=== PATIENT | male | born 1950 | race Caucasian/White ===

== ENCOUNTER → 2019-01-20 08:45 | Outpatient (CLI) | payer MEDICARE | END | disposition home or self-care (01) | LOC: D.CT 08:45 | PROVIDERS: ATTEND Legal Medicine | DX: C71.9 Malignant neoplasm of brain, unspecified (principal) ==

== ENCOUNTER 2019-07-24 09:07 | Inpatient (IN) | payer MEDICARE ==
[~2019-07-24] VITALS: Ht 182.9 cm; Wt 117.7 kg
[2019-07-24] MEDS ORDERED: TYLENOL ARTHRI650 MG PO (09:17)
[2019-07-24] MEDS ORDERED: ATIVAN0.5 MG PO (09:17)
[2019-07-24] MEDS ORDERED: DECADRON4 MG PO (09:18)
[2019-07-24] MEDS ORDERED: BENZTROPINE MESY1 MG PO (09:18)
[2019-07-24] MEDS ORDERED: DONEPEZIL HCL10 MG PO (09:18)
[2019-07-24] MEDS ORDERED: BUSPAR 15 MG TA15 MG PO (09:18)
[2019-07-24] MEDS ORDERED: EFFEXOR XR150 MG PO (09:19)
[2019-07-24] MEDS ORDERED: KEPPRA500 MG PO (09:19)
[2019-07-24] MEDS ORDERED: FLOMAX0.4 MG PO (09:19)
[2019-07-24] MEDS ORDERED: KLOR-CON M2020 MEQ PO (09:19)
[2019-07-24] MEDS ORDERED: MOBIC7.5 MG PO (09:20)
[2019-07-24] MEDS ORDERED: MELATONIN 3 MG1 TAB PO (09:20)
[2019-07-24] MEDS ORDERED: FUROSEMIDE20 MG PO (09:20)
[2019-07-24] MEDS ORDERED: PROMOD LIQUID P30 M1 PO (09:21)
[2019-07-24] MEDS ORDERED: OMEPRAZOLE40 MG PO (09:21)
[2019-07-24] MEDS ORDERED: VITAMIN B-1100 M1 PO (09:21)
[2019-07-24] MEDS ORDERED: VITAMIN D5000 UNI1 PO (09:22)
[2019-07-24] MEDS ORDERED: ZYPREXA10 MG PO (09:22)
[2019-07-24] MEDS ORDERED: ULTRAM50 MG PO (09:22)
--- NOTE | 2019-07-24 09:25 | NUR ---
CLEANED AND REPOSITIONED D/T INCONT OF STOOL.
[2019-07-24 09:37] LABS: BASOPHILS 0.1 % (0-2); EOSINOPHILS 0 % (0-7); HEMATOCRIT 38.6 % (42.0-54.0); HEMOGLOBIN 12.7 g/dL (13.5-17.5); IMMATURE GRANULOCYTES 0.1 % (0-5); LYMPHOCYTES 4.8 % (15-50); MCH 31.4 pg (26.0-34.0); MCHC 32.9 g/dL (31.0-37.0); MCV 95.5 fL (80.0-100.0); MEAN PLATELET VOLUME 10.6 fL (7.4-10.4); MONOCYTES 4.2 % (2-11); NEUTROPHILS 90.8 % (40-80); PLATELET COUNT 220 10x3/uL (130-400); RBC 4.04 10x6/uL (4.20-6.10); RDW 14.9 % (11.5-14.5); WBC 6.7 10x3/uL (4.8-10.8)
--- NOTE | 2019-07-24 09:40 | NUR ---
TO CT/XR.
--- NOTE | 2019-07-24 09:56 | NUR ---
RETURN FROM CT/XR.
[2019-07-24 10:00] LABS: UDS - AMPHET NEGATIVE QUAL (NEGATIVE); UDS - BARB NEGATIVE QUAL (NEGATIVE); UDS - BENZO NEGATIVE QUAL (NEGATIVE); UDS - COCAINE NEGATIVE QUAL (NEGATIVE); UDS - OPIATE NEGATIVE QUAL (NEGATIVE); UDS - PCP NEGATIVE QUAL (NEGATIVE); UDS - THC NEGATIVE QUAL (NEGATIVE)
[2019-07-24 10:00] LABS: INR 1.19 (0.85-1.17); PROTIME 15.1 SECONDS (11.6-15.0)
[2019-07-24 10:05] LABS: BILIRUBIN NEGATIVE (NEGATIVE); GLUCOSE NEGATIVE (NEGATIVE); KETONE NEGATIVE (NEGATIVE); NITRITE NEGATIVE (NEGATIVE); SPECIFIC GRAVITY 1.015 (1.005-1.020); UROBILINOGEN NORMAL (NORMAL)
[2019-07-24 10:07] VITALS: BP 97/37
[2019-07-24 10:55] LABS: CREATININE - SERUM 1.7 mg/dL (0.6-1.3); GLUCOSE 95 mg/dL (74-106); MAGNESIUM - SERUM 1.7 mg/dL (1.8-2.4); UREA NITROGEN 31 mg/dL (7-18); eGFR NON AFRICAN AMERICAN 43 mL/min (90-120)
[2019-07-24 10:56] LABS: ALBUMIN 2.2 g/dL (3.4-5.0); ALKALINE PHOSPHATASE 68 U/L (30-120); ALT (SGPT) 58 U/L (10-68); BILIRUBIN - TOTAL 1.06 mg/dL (0.2-1.3); CALC OSMOLALITY 291 mosm/kg (275-300); CALCIUM 7.6 mg/dL (8.5-10.1); CARBON DIOXIDE 23.4 mmol/L (21.0-32.0); CHLORIDE - SERUM 108 mmol/L (98-107); CREATINE KINASE 33 UL (21-232); POTASSIUM - SERUM 4.3 mmol/L (3.5-5.1); PROTEIN - SERUM 4.3 g/dL (6.4-8.2); SODIUM 143 mmol/L (136-145)
[2019-07-24 10:57] LABS: TROPONIN-I < 0.017 ng/mL (0.000-0.060)
[2019-07-24 11:00] VITALS: BP 85/66
[2019-07-24 11:00] LABS: CKMB 0.4 U/L (0.0-3.6); THYROID STIMULATING HORMONE 1.07 uIU/mL (0.36-3.74)
[2019-07-24 12:00] VITALS: BP 100/77; BP 101/64
[2019-07-24 12:45] VITALS: BP 87/66
--- NOTE | 2019-07-24 13:17 | NUR ---
PT TO ROOM FROM ER ON CART, ASSIST TO BED. PAIN COMPLAINTS TO RIGHT KNEE AND LEG AREA. MULTIPLE DRESSINGS ON UPPER AND LOWER EXTREMITIES FROM SKIN TEARS SECONDARY TO FALLS. BRUISING NOTED ALSO, ESPECIALLY TO LEFT HIP AREA.
--- NOTE | 2019-07-24 13:52 | NUR ---
ADMITTED TODAY FROM [place]. PT HAS NUMEROUS SKIN TEARS AND ABRASIONS LOCATED ON BILATERAL ARMS AND LEGS. HIS RIGHT LOWER LEG IS EDEMATOUS, DISCOLORED RED AND WARM TO THE TOUCH. HE CRIES OUT WHEN IT'S TOUCHED. THERE IS A LARGE PURPLE BRUISE ON HIS LEFT BUTTOCK AND HIP. PT HAS A HX OF FALLS.
[2019-07-24 17:48] VITALS: BP 93/45; BMI 27.2
--- NOTE | 2019-07-24 19:38 | NUR ---
PT LYING IN BED AWAKE AND ALERT. BED BATH DONE AND LINEN CHNAGED. PT REPOSITIONED FOR COMFORT. SIDERAILS UP x3. PT TOLERATED BATH WELL. BED ALARM ON AND ACTIVE. CALL LIGHT WITH IN REACH. WILL CONTINUE TO MONITOR
--- NOTE | 2019-07-24 19:39 | NUR ---
PT CHANGED AND CLEANED UP. PM SHIFT NURSE AT BEDSIDE ASSISTING. LARGE BLISTER TO BACK OF CALF POPPED DURING TRANSFER.
[2019-07-24 20:40] VITALS: BP 102/69
--- NOTE | 2019-07-24 23:39 | NUR ---
HR RATE IN THE 200'S PER DUPLICATING MACHINE MECHANIC. CARDIZEM BOLUS AND CARDIZEM DRIP ADMINISTERED. CRUZ LAGUNA AT BEDSIDE. PT HR IS 103 UNCONTROLLED A FIB PER DUPLICATING MACHINE MECHANIC. XRAY IS AT BEDSIDE. PT IS TOLERATING WELL. CALL LIGHT AND OTHER PERSONAL ITEMS WITH IN REACH. BED IS INLOWEST POSITION. WILL CONTINUE TO MONITOR
[2019-07-25] VITALS: BP 98/61
[2019-07-25 04:00] VITALS: BP 90/67
[2019-07-25 05:17] LABS: BASOPHILS 0 % (0-2); EOSINOPHILS 0 % (0-7); HEMATOCRIT 39.5 % (42.0-54.0); HEMOGLOBIN 12.6 g/dL (13.5-17.5); IMMATURE GRANULOCYTES 1.4 % (0-5); LYMPHOCYTES 3.7 % (15-50); MCH 30.3 pg (26.0-34.0); MCHC 31.9 g/dL (31.0-37.0); MEAN PLATELET VOLUME 10.7 fL (7.4-10.4); MONOCYTES 2.6 % (2-11); NEUTROPHILS 92.3 % (40-80); PLATELET COUNT 185 10x3/uL (130-400); RBC 4.16 10x6/uL (4.20-6.10); RDW 14.8 % (11.5-14.5); WBC 9.4 10x3/uL (4.8-10.8)
[2019-07-25 05:42] LABS: ANION GAP 17.4 mmol/L (8-16); CALCIUM 7.9 mg/dL (8.5-10.1); CARBON DIOXIDE 18.5 mmol/L (21.0-32.0); CREATININE - SERUM 1.3 mg/dL (0.6-1.3); MAGNESIUM - SERUM 1.8 mg/dL (1.8-2.4); PHOSPHOROUS 3.6 mg/dL (2.5-4.9); POTASSIUM - SERUM 3.9 mmol/L (3.5-5.1)
[2019-07-25 09:32] VITALS: BP 131/51
[2019-07-25 12:00] VITALS: BP 95/55
[2019-07-25 13:12] VITALS: BMI 27.1
--- NOTE | 2019-07-25 14:38 | NUR ---
SPOKE WITH PATIENTS KELSIE BLAKE. ANSWERED QUESTIONS TO SATISFACTION. 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
[2019-07-25 16:00] VITALS: BP 100/62
--- NOTE | 2019-07-25 20:00 | NUR ---
INITIAL ROUNDS AND ASSESSMENT COMPLETED. PT RESTING IN BED. LETHARGIC, EYES CLOSED. ROUSES UP WITH STIMULI. PT INCONTINENT OF BOWEL. CARE PROVIDED/LINENS CHANGED. POOR SKIN CONDITION TO LOWER LEGS, ESPECIALLY TO RLL. PT CRIES OUT WITH TURNING AND REPOSITIONING. ONCE, MORE AWAKE, HE WILL SOFTLY ANSWER QUESTIONS. O2 @ 4L/NC IN PLACE WITH NONLABORED RESPIRATIONS. CAF PER TELEMETRY. CPOC. CALL LIGHT IN REACH.
[2019-07-25 20:30] VITALS: BP 96/67
--- NOTE | 2019-07-25 22:00 | NUR ---
BEDTIME MEDS GIVEN IN PUDDING. PT MORE ALERT. CLEAN/DRY. CPOC.
[2019-07-26 04:18] LABS: BASOPHILS 0.1 % (0-2); EOSINOPHILS 0 % (0-7); HEMATOCRIT 35.3 % (42.0-54.0); HEMOGLOBIN 11.4 g/dL (13.5-17.5); LYMPHOCYTES 3.1 % (15-50); MCH 30.9 pg (26.0-34.0); MCHC 32.3 g/dL (31.0-37.0); MCV 95.7 fL (80.0-100.0); MEAN PLATELET VOLUME 11.4 fL (7.4-10.4); MONOCYTES 3.5 % (2-11); NEUTROPHILS 92.3 % (40-80); PLATELET COUNT 148 10x3/uL (130-400); RBC 3.69 10x6/uL (4.20-6.10); RDW 14.7 % (11.5-14.5)
[2019-07-26 04:22] LABS: WBC 11.8 10x3/uL (4.8-10.8)
[2019-07-26 04:26] LABS: ANION GAP 13.3 mmol/L (8-16); CALCIUM 8.1 mg/dL (8.5-10.1); CREATININE - SERUM 1.5 mg/dL (0.6-1.3); POTASSIUM - SERUM 4.3 mmol/L (3.5-5.1)
[2019-07-26 04:30] VITALS: BP 125/97
--- NOTE | 2019-07-26 08:19 | NUR ---
CLEANED PT FROM INCONT EPISODE. PT SCREAMING TO BE LEFT ALONE, WILL TRY TO FEED HIM IN A LITTLE WHILE. RT HAND INFUISNG CARDIZEM AT 5CC//HR AND NS AT KVO. HEART MONITOR SHOWING CAF WITH RATE OF 92. PT ON 4L NC WITH EVEN AND REGULAR RESP. CALL LIGHT IN REACH, BED LOW, BEDSIDE RAILS X2, NAD NOTED,W ILL CONTINUE PLAN OF CARE.
[2019-07-26 09:44] VITALS: BP 87/50
[2019-07-26 12:40] VITALS: BP 140/97
--- NOTE | 2019-07-26 16:10 | NUR ---
25MG OF TRAMADOL GIVEN FOR PAIN LEVEL OF 9/10. PT DENIES ANY OTHER NEEDS AT THIS TIME. CALL LIGHT IN REACH, NAD NOTED, WILL CONTINUE TO MONITOR.
[2019-07-26 17:15] VITALS: BP 81/47
--- NOTE | 2019-07-26 20:00 | NUR ---
INITIAL ROUNDS AND ASSESSMENT COMPLETED. PT RESTING IN BED WITH EYES CLOSED. ROUSES TO VERBAL STIMULI. CARDIZEM DRIP AT 5ML/HR + NS @ 100ML/HR INFUSING TO LEFT HAND. POOR SKING STATUS, SEE ASSESSMENT. FALL PRECAUTIONS. CPOC.
[2019-07-26 20:30] VITALS: BP 85/53
--- NOTE | 2019-07-26 21:00 | NUR ---
COMPLETE BED BATH GIVEN. PT CRIES OUT WITH ALL TURNS AND REPOSITIONING. CPOC.
--- NOTE | 2019-07-26 22:38 | NUR ---
BEDTIME MEDS GIVEN IN PUDDING. PT TOLERATES FAIR IF PILLS ARE DISSOLVED. IF HE GETS ANY THAT ARE INTACT, HE WILL SPIT THEM OUT.
--- NOTE | 2019-07-27 00:12 | NUR ---
SPENT 1:1 TIME WITH PATIENT AFTER HE WAS BATHED AND RESTING. VERY TALKATIVE AND REMINISCING TONIGHT ABOUT HIS RELATIONSHIP WITH HIS DAUGHTERS. VERY MELONCHOLY. CPOC. CLEAN/DRY.
[2019-07-27 00:30] VITALS: BP 99/49
[2019-07-27 04:34] VITALS: BP 98/54
[2019-07-27 04:48] LABS: BASOPHILS 0 % (0-2); EOSINOPHILS 0 % (0-7); HEMATOCRIT 34.2 % (42.0-54.0); IMMATURE GRANULOCYTES 1.1 % (0-5); LYMPHOCYTES 3.5 % (15-50); MCH 30.7 pg (26.0-34.0); MCHC 32.2 g/dL (31.0-37.0); MCV 95.5 fL (80.0-100.0); MEAN PLATELET VOLUME 11.4 fL (7.4-10.4); NEUTROPHILS 90.4 % (40-80); RBC 3.58 10x6/uL (4.20-6.10); RDW 14.8 % (11.5-14.5); WBC 10.6 10x3/uL (4.8-10.8)
[2019-07-27 04:53] LABS: PLATELET COUNT 117 10x3/uL (130-400)
[2019-07-27 04:56] LABS: ANION GAP 12.3 mmol/L (8-16); CALCIUM 8.4 mg/dL (8.5-10.1); CREATININE - SERUM 1.4 mg/dL (0.6-1.3); POTASSIUM - SERUM 4.3 mmol/L (3.5-5.1)
[2019-07-27 08:42] VITALS: BP 111/33
--- NOTE | 2019-07-27 08:42 | NUR ---
AM MEDS GIVEN AT THIS TIME. ALSO FEED PT, HE ATE ABOUT 75% OF FOOD. PT DENIES ANY NEEDS AT THIS TIME. CALL LIGHT IN REACH, NAD NOTED, WILL CONTINUE TO MONITOR.
--- NOTE | 2019-07-27 11:30 | NUR ---
DRESSING CHANGE TO ARMS PROVIDED.
[2019-07-27 13:55] VITALS: BP 91/25
[2019-07-27 16:16] VITALS: BP 98/42
[2019-07-27 20:30] VITALS: BP 106/57
--- NOTE | 2019-07-27 21:00 | NUR ---
SHUT OFF PTS CARDIZEM DRIP HR DROPPING DOWN TO 40S-50S CAF.
--- NOTE | 2019-07-27 22:00 | NUR ---
PT TOOK PM MEDICATION IN PUDDING WITHOUT ISSUES. PROVIDED TRAMADOL PER ORDER. PT STATES HE ALWAYS HURTS. PT HAS POOR SKIN CONDITION. CHANGED DRESSINGS TO BOTH ARMS. NO FURTHER NEEDS EXPRESSED. WILL CTM.
[2019-07-28 00:30] VITALS: BP 103/45
[2019-07-28 04:30] VITALS: BP 94/45
--- NOTE | 2019-07-28 07:10 | NUR ---
REPORT RECEIVED FROM CROOK OPERATOR ANDPATIENT CARE ASSUMED. PATIENT LAYING IN BED ON BACK WITH EYES CLOSED AND BREATHING EVNELY. PATIENT AROUSES EASILY TO VOICE AND SAIF GOOD MORNING BACK TO ME. WILL CONITNUE WITH PLAN OF CARE. SR UP X 2 BED IN LOW POSITION AND CALL LIGHT IN REACH.
[2019-07-28 07:51] VITALS: BP 127/64
[2019-07-28 08:47] VITALS: Ht 182.9 cm; Wt 117.7 kg
[2019-07-28 09:07] LABS: BASOPHILS 0.2 % (0-2); EOSINOPHILS 0 % (0-7); HEMOGLOBIN 11.1 g/dL (13.5-17.5); IMMATURE GRANULOCYTES 0.6 % (0-5); MCH 30.7 pg (26.0-34.0); MCHC 31.7 g/dL (31.0-37.0); MCV 96.7 fL (80.0-100.0); MEAN PLATELET VOLUME 11.7 fL (7.4-10.4); MONOCYTES 4.4 % (2-11); NEUTROPHILS 86.8 % (40-80); PLATELET COUNT 115 10x3/uL (130-400); RBC 3.62 10x6/uL (4.20-6.10); RDW 14.9 % (11.5-14.5)
[2019-07-28 09:10] LABS: WBC 6.6 10x3/uL (4.8-10.8)
[2019-07-28 09:21] LABS: CALCIUM 7.9 mg/dL (8.5-10.1); GLUCOSE 88 mg/dL (74-106); UREA NITROGEN 39 mg/dL (7-18)
[2019-07-28 09:23] LABS: eGFR NON AFRICAN AMERICAN 79 mL/min (90-120)
[2019-07-28 09:32] LABS: CALC OSMOLALITY 290 mosm/kg (275-300); CHLORIDE - SERUM 109 mmol/L (98-107); POTASSIUM - SERUM 4.3 mmol/L (3.5-5.1); SODIUM 142 mmol/L (136-145)
--- NOTE | 2019-07-28 10:14 | NUR ---
Nutrition Follow-up: Pt confused. No family at BS. Chart reviewed Diet: Cardiac PO intake: 63% avg x 6 meals Wt: 200# (07/24) Last BM: 07/26 per chart Labs reviewed Meds noted: Lasix, KDur, vitamin D, Protonix, NS @ 50 -Encourage PO intake and honor food preferences within diet restrictions. -Offer nutrition supplements. -Need new wt; noted daily wts ordered. -RD following.
--- NOTE | 2019-07-28 13:00 | NUR ---
ATTEMPTED TO GIVE PERINEAL CARE AND REPOSITON, PATIENT GRIMACED AND STATES THAT HE WAS IN A LOT OF PAIN UPON MOVEMENT. SPOKE WITH KAJAL EDEN APN. LT HIP AND ELVIC XRAY ORDERED.
--- NOTE | 2019-07-28 14:45 | MORECARE ---
CASE MANAGEMENT DISCHARGE SUMMARY PATIENT: ALYX HERNANDES UNIT: [id number] ADM DATE: 07/24/19 AGE: 68 : 50 SEX: M ROOM/BED: D.2117 AUTHOR: NATALIADOC PHYSICIAN: REFERRING PHYSICIAN: RIGOBERTO CHEUNG MD DATE OF SERVICE: 07/28/19 Discharge Plan Patient Name: ALYX HERNANDES Facility: [facility]:[place] : 1950 Planned Disposition: Nursing Facility [facility] Cert Anticipated Discharge Date: Discharge Date: Expected LOS: Initial Reviewer: [email or web address] Initial Review Date: 07/28/2019 Generated: 07/28/19 3:44 pm Comments DCP- Discharge Planning Updated by [email or web address]: Evita Soni on 07/28/19 1:[address] Patient Name: ALYX HERNANDES Admission Status: ER Accout number: [id number] Admission Date: 07-24-2019 : 1950 Admission Diagnosis:ACUTE KIDNEY FAILURE, UNSPECIFIED Attending: RIGOBERTO CHEUNG Current LOS: 4 Anticipated DC Date: Planned Disposition: Nursing Facility [facility] Cert Primary Insurance: MEDICARE A & B Discharge Planning Comments: CM met with patient to discuss discharge planning/needs. He is confused. I called patient's daughter, Slaly Pierce, that is listed on [place] paperwork as first contact. Sally states he has lived at [facility] since last September and the plan would be for him to return there on discharge. States prior to Covid -19, he was able to ambulate with a walker. States she has been unable to visit because of Covid-19, so cannot say how long it has been since he was walking. States typically [facility] not [facility] the [facility]. No other needs at this time. National Insurance Officer: Evita Soni DCPIA - Discharge Planning Initial Assessment Updated by [email or web address]: Evita Soni on 07/28/19 2:39 pm * Is the patient Alert and Oriented? No * How many steps to enter\exit or inside your home? 0/0 * PCP Dr. Cheung * Pharmacy [facility] * Preadmission Environment [employer] * Facility Name [place] [address] * ADLs Total Dependent * Equipment Walker Wheelchair * List name and contact numbers for known caregivers / representatives who currently or will assist patient after discharge: Sally Pierce - DTR - [phone] Liz Bustillos - DTR - [phone] * Verbal permission to speak to the caregivers and representatives has been obtained from the patient. Yes * Community resources currently utilized None * Additional services required to return to the preadmission environment? No * Can the patient safely return to the preadmission environment? Yes * Has this patient been hospitalized within the prior 30 days at any hospital? No Patient Name: ALYX HERNANDES Page [phone] at 1445 All edits/amendments must be made on the electronic document DICTATION DATE: 07/28/191443 ECMO SPECIALIST: VITA 07/28/191443 RPT#: [id number] DC DATE: STATUS: ADM IN [facility] [address] [place] [address] END OF REPORT
[2019-07-28 14:54] VITALS: BP 112/69
--- NOTE | 2019-07-28 14:54 | MORECARE ---
CASE MANAGEMENT DISCHARGE SUMMARY PATIENT: ALYX HERNANDES UNIT: [id number] ADM DATE: 07/24/19 AGE: 68 : 50 SEX: M ROOM/BED: D.2117 AUTHOR: GIRMA FISHER PHYSICIAN: REFERRING PHYSICIAN: RIGOBERTO CHEUNG MD DATE OF SERVICE: 07/28/19 Discharge Plan Patient Name: ALYX HERNANDES Facility: [facility]:[place] : 1950 Planned Disposition: Nursing Facility [facility] Cert Anticipated Discharge Date: Discharge Date: Expected LOS: Initial Reviewer: [email or web address] Initial Review Date: 07/28/2019 Generated: 07/28/19 3:54 pm Comments DCP- Discharge Planning Updated by [email or web address]: Evita Soni on 07/28/19 1:[address] I attempted to call [facility] with no answer, I left my call back number on voice mail of director of planning. Updated clinical faxed to [facility]. DCP- Discharge Planning Updated by [email or web address]: Evita Soni on 07/28/19 1:[address] Patient Name: ALYX HERNANDES Admission Status: ER Accout number: [id number] Admission Date: 07-24-2019 : 1950 Admission Diagnosis:ACUTE KIDNEY FAILURE, UNSPECIFIED Attending: RIGOBERTO CHEUNG Current LOS: 4 Anticipated DC Date: Planned Disposition: Nursing Facility [facility] Cert Primary Insurance: MEDICARE A & B Discharge Planning Comments: CM met with patient to discuss discharge planning/needs. He is confused. I called patient's daughter, Sally Pierce, that is listed on [place] paperwork as first contact. Sally states he has lived at [facility] since last September and the plan would be for him to return there on discharge. States prior to Covid -19, he was able to ambulate with a walker. States she has been unable to visit because of Covid-19, so cannot say how long it has been since he was walking. States typically he [facility] not [facility] oxygen at the [facility]. No other needs at this time. Gun Tester: Evita Soni DCPIA - Discharge Planning Initial Assessment Updated by [email or web address]: Evita Soni on 07/28/19 2:39 pm * Is the patient Alert and Oriented? No * How many steps to enter\exit or inside your home? 0/0 * PCP Dr. Cheung * Pharmacy [facility] * Preadmission Environment [facility] * Facility Name [place] [address] * ADLs Total Dependent * Equipment Walker Wheelchair * List name and contact numbers for known caregivers / representatives who currently or will assist patient after discharge: Sally Piecre - [facility] - [phone] Liz Bustillos - [facility] - [phone] * Verbal permission to speak to the caregivers and representatives has been obtained from the patient. Yes * Community resources currently utilized None * Additional services required to return to the preadmission environment? No * Can the patient safely return to the preadmission environment? Yes * Has this patient been hospitalized within the prior 30 days at any hospital? No External Providers External Provider: [facility] Next Contact Date: Service Request Date: Service Type: Resolution: Reviewer: Comments: Last DP export: 07/28/19 1:44 pm Patient Name: ALYX HERNANDES Page [phone] at 1454 All edits/amendments must be made on the electronic document DICTATION DATE: 07/28/191453 GAUGE MACHINE OPERATOR: VITA 07/28/191453 RPT#: [id number] DC DATE: STATUS: ADM IN [facility] [address] [place] [address] END OF REPORT
[2019-07-28 17:08] LABS: AEROBE ID Final report (())
--- NOTE | 2019-07-28 19:10 | NUR ---
RECEIVED BEDSIDE REPORT. PATIENT IS RESTING COMFORTABLY IN BED. RESPIRATIONS ARE EVEN AND UNLABORED. NO S/S OF DISTRESS. NO C/O PAIN. CALL LIGHT WITHIN REACH. WILL CPOC.
[2019-07-28 20:00] VITALS: BP 103/80
[2019-07-29] VITALS: BP 103/63
[2019-07-29 04:00] VITALS: BP 116/61
[2019-07-29] MEDS ORDERED: DOXYCYCLINE HY100 M2 PO (09:36)
[2019-07-29 10:03] VITALS: BP 114/61
--- NOTE | 2019-07-29 10:15 | MORECARE ---
CASE MANAGEMENT DISCHARGE SUMMARY PATIENT: ALYX HERNANDES UNIT: [id number] ADM DATE: 07/24/19 AGE: 68 : 50 SEX: M ROOM/BED: D.2117 AUTHOR: NATALIADOC PHYSICIAN: REFERRING PHYSICIAN: RIGOBERTO CHEUNG MD DATE OF SERVICE: 07/29/19 Discharge Plan Patient Name: ALYX HERNANDES Facility: [facility]:[place] : 1950 Planned Disposition: Nursing Facility [facility] Cert Anticipated Discharge Date: Discharge Date: Expected LOS: Initial Reviewer: [email or web address] Initial Review Date: 07/28/2019 Generated: 07/29/19 11:15 am Comments DCP- Discharge Planning Updated by [email or web address]: Evita Soni on 07/29/19 9:[address] CM received discharge order. CM called and spoke to Nirmala at [facility] and clinical faxed. He will need to transfer via ambulance since he is bed ridden. Nirmala states she will call be back after speaking with public service administrator. CM will continue to follow and assist with discharge planning/needs. DCP- Discharge Planning Updated by [email or web address]: Evita Soni on 07/28/19 1:[address] I attempted to call [facility] with no answer, I left my call back number on voice mail of sports director. Updated clinical faxed to [facility]. DCP- Discharge Planning Updated by [email or web address]: Evita Soni on 07/28/19 1:[address] Patient Name: ALYX HERNANDES Admission Status: ER Accout number: [id number] Admission Date: 07-24-2019 : 1950 Admission Diagnosis:ACUTE KIDNEY FAILURE, UNSPECIFIED Attending: RIGOBERTO CHEUNG Current LOS: 4 Anticipated DC Date: Planned Disposition: Nursing Facility [facility] Cert Primary Insurance: MEDICARE A & B Discharge Planning Comments: CM met with patient to discuss discharge planning/needs. He is confused. I called patient's daughter, Sally Pierce, that is listed on [place] paperwork as first contact. Sally states he has lived at [facility] since last September and the plan would be for him to return there on discharge. States prior to Covid -19, he was able to ambulate with a walker. States she has been unable to visit because of Covid-19, so cannot say how long it has been since he was walking. States typically he does not wear oxygen at the shelter. No other needs at this time. Gunsmith Apprentice: Evita Soni DCPIA - Discharge Planning Initial Assessment Updated by [email or web address]: Evita Soni on 07/28/19 2:39 pm * Is the patient Alert and Oriented? No * How many steps to enter\exit or inside your home? 0/0 * PCP Dr. Cheung * Pharmacy [facility] * Preadmission Environment Payroll Coordinator Retirement * Facility Name [place] [address] * ADLs Total Dependent * Equipment Walker Wheelchair * List name and contact numbers for known caregivers / representatives who currently or will assist patient after discharge: Sally Pierce - DT - [phone] Liz Bustillos - [facility] - [phone] * Verbal permission to speak to the caregivers and representatives has been obtained from the patient. Yes * Community resources currently utilized None * Additional services required to return to the preadmission environment? No * Can the patient safely return to the preadmission environment? Yes * Has this patient been hospitalized within the prior 30 days at any hospital? No Last DP export: 07/28/19 1:54 pm Patient Name: ALYX HERNANDES Page 00089 at 1015 All edits/amendments must be made on the electronic document DICTATION DATE: 07/29/19 1015 URGENT CARE PHYSICIAN: VITA 07/29/19 1015 RPT#: [id number] DC DATE: STATUS: ADM IN [facility] [address] [place] [address] END OF REPORT
--- NOTE | 2019-07-29 11:13 | MORECARE ---
CASE MANAGEMENT DISCHARGE SUMMARY PATIENT: ALYX HERNANDES UNIT: [id number] ADM DATE: 07/24/19 AGE: 68 : 50 SEX: M ROOM/BED: D.2117 AUTHOR: NATALIADOC PHYSICIAN: REFERRING PHYSICIAN: RIGOBERTO CHEUNG MD DATE OF SERVICE: 07/29/19 Discharge Plan Patient Name: ALYX HERNANDES Facility: [facility]:[place] : 1950 Planned Disposition: Nursing Facility [facility] Cert Anticipated Discharge Date: Discharge Date: Expected LOS: Initial Reviewer: [email or web address] Initial Review Date: 07/28/2019 Generated: 07/29/19 12:13 pm Comments DCP- Discharge Planning Updated by [email or web address]: Evita Soni on 07/29/19 9:[address] CM received discharge order. CM called and spoke to Nirmala at [facility] and clinical faxed. He will need to transfer via ambulance since he is bed ridden. Nirmala states she will call be back after speaking with sales office administrator. CM will continue to follow and assist with discharge planning/needs. DCP- Discharge Planning Updated by [email or web address]: Evita Soni on 07/28/19 1:[address] I attempted to call [facility] with no answer, I left my call back number on voice mail of area director. Updated clinical faxed to [facility]. DCP- Discharge Planning Updated by [email or web address]: Evita Soni on 07/28/19 1:[address] Patient Name: ALYX HERNANDES Admission Status: ER Accout number: [id number] Admission Date: 07-24-2019 : 1950 Admission Diagnosis:ACUTE KIDNEY FAILURE, UNSPECIFIED Attending: RIGOBERTO CHEUNG Current LOS: 4 Anticipated DC Date: Planned Disposition: Nursing Facility [facility] Cert Primary Insurance: MEDICARE A & B Discharge Planning Comments: CM met with patient to discuss discharge planning/needs. He is confused. I called patient's daughter, Sally Pierce, that is listed on [place] paperwork as first contact. Sally states he has lived at [facility] since last September and the plan would be for him to return there on discharge. States prior to Covid -19, he was able to ambulate with a walker. States she has been unable to visit because of Covid-19, so cannot say how long it has been since he was walking. States typically he does not [facility] oxygen at the correction. No other needs at this time. Registered Nurse: Evita Soni DCPIA - Discharge Planning Initial Assessment Updated by [email or web address]: Evita Soni on 07/28/19 2:39 pm * Is the patient Alert and Oriented? No * How many steps to enter\exit or inside your home? 0/0 * PCP Dr. Cheung * Pharmacy [facility] * Preadmission Environment [employer] * Facility Name [place] [address] * ADLs Total Dependent * Equipment Walker Wheelchair * List name and contact numbers for known caregivers / representatives who currently or will assist patient after discharge: Sally Pierce - [facility] - [phone] Liz Bustillos - [facility] - [phone] * Verbal permission to speak to the caregivers and representatives has been obtained from the patient. Yes * Community resources currently utilized None * Additional services required to return to the preadmission environment? No * Can the patient safely return to the preadmission environment? Yes * Has this patient been hospitalized within the prior 30 days at any hospital? No External Providers External Provider: [facility] Next Contact Date: Service Request Date: Service Type: Resolution: Reviewer: Comments: Last DP export: 07/29/19 9:15 am Patient Name: ALYX HERNANDES Page [phone] at 1113 All edits/amendments must be made on the electronic document DICTATION DATE: 07/29/19 1113 LOCOMOTIVE DRIVER: VITA 07/29/19 1113 RPT#: [id number] DC DATE: STATUS: ADM IN [facility] [address] [place] [address] END OF REPORT
--- NOTE | 2019-07-29 11:35 | MORECARE ---
CASE MANAGEMENT DISCHARGE SUMMARY PATIENT: ALYX HERNANDES UNIT: [id number] ADM DATE: 07/24/19 AGE: 68 : 50 SEX: M ROOM/BED: D.2117 AUTHOR: NATALIADOC PHYSICIAN: REFERRING PHYSICIAN: RIGOBERTO CHEUNG MD DATE OF SERVICE: 07/29/19 Discharge Plan Patient Name: ALYX HERNANDES [facility] [facility] 1950 Planned Disposition: Nursing Facility RISA Cert Anticipated Discharge Date: Discharge Date: Expected LOS: Initial Reviewer: [email or web address] Initial Review Date: 07/28/2019 Generated: 07/29/19 12:35 pm Comments DCP- Discharge Planning Updated by [id number]: Evita Soni on 07/29/19 10:[address] I called Sally Pierce and left a message that her father was returning to [facility] as planned today. I also informed her of the IMM and number to call for appeal and my call back number. She had expressed yesterday that she agrees with discharge when physician was ready. No address for family member on face sheet. I called [facility] and the business office states they were unsure if patient was discharging to a skilled or Medicaid bed that they were running benefits. DCP- Discharge Planning Updated by [id number]: Evita Soni on 07/29/19 9:[address] CM received discharge order. CM called and spoke to Nirmala at [facility] and clinical faxed. He will need to transfer via ambulance since he is bed ridden. Nirmala states she will call be back after speaking with historic site administrator. CM will continue to follow and assist with discharge planning/needs. DCP- Discharge Planning Updated by [id number]: Evita Soni on 07/28/19 1:[address] I attempted to call [facility] with no answer, I left my call back number on voice mail of director compensation. Updated clinical faxed to [facility]. DCP- Discharge Planning Updated by [id number]: Evita Soni on 07/28/19 1:[address] Patient Name: ALYX HERNANDES Admission Status: ER Accout number: [id number] Admission Date: 07-24-2019 : 1950 Admission Diagnosis:ACUTE KIDNEY FAILURE, UNSPECIFIED Attending: RIGOBERTO CHEUNG Current LOS: 4 Anticipated DC Date: Planned Disposition: Nursing Facility [facility] Primary Insurance: MEDICARE A & B Discharge Planning Comments: CM met with patient to discuss discharge planning/needs. He is confused. I called patient's daughter, Sally Pierce, that is listed on [place] paperwork as first contact. Sally states he has lived at [facility] since last September and the plan would be for him to return there on discharge. States prior to Covid -19, he was able to ambulate with a walker. States she has been unable to visit because of Covid-19, so cannot say how long it has been since he was walking. States typically he does not wear oxygen at the assisted. No other needs at this time. Bathing Suit Maker: Evita Soni DCPIA - Discharge Planning Initial Assessment Updated by [id number]: Evita Soni on 07/28/19 2:39 pm * Is the patient Alert and Oriented? No * How many steps to enter\exit or inside your home? 0/0 * PCP Dr. Cheung * Pharmacy [facility] * Preadmission Environment Time Study Technologist Detention * Facility Name [facility] [address] * ADLs Total Dependent * Equipment Walker Wheelchair * List name and contact numbers for known caregivers / representatives who currently or will assist patient after discharge: Sally Pierce - DTR - [phone] Liz Bustillos - R - [phone] * Verbal permission to speak to the caregivers and representatives has been obtained from the patient. Yes * Community resources currently utilized None * Additional services required to return to the preadmission environment? No * Can the patient safely return to the preadmission environment? Yes * Has this patient been hospitalized within the prior 30 days at any hospital? No Coverage Notice Reviewer: [id number] - Evita Soni Notice Issued Date-Time: 07/29/2019 11:25 Notice Type: IM Discharge Notice Notice Delivered To: Family Member Relationship to Patient: Daughter Finisher Cold Rolling Name: Sally Pierce Delivery Method: CERT - Certified Mail Dora Days: Prior Verbal Notification: Recipient Understood Notice: Yes Recipient Signature: Med Rec Note Co-signed by Attending: Coverage Notice Comment: I called Sally Pierce and left a message about IMM and telephone number for call. Reviewer: [id number] - Evita Soni Notice Issued Date-Time: 07/28/2019 14:30 Notice Type: Patient Choice Letter Notice Delivered To: Family Member Relationship to Patient: Daughter Finisher Cold Rolling Name: Sally Pierce Delivery Method: PHONE - Phone Dora Days: Prior Verbal Notification: Recipient Understood Notice: Yes Recipient Signature: Med Rec Note Co-signed by Attending: Coverage Notice Comment: [facility] for [facility] Last DP export: 07/29/19 10:13 am Patient Name: ALYX HERNANDES Page [id number] at 1135 All edits/amendments must be made on the electronic document DICTATION DATE: 07/29/19 1135 CAMERA TECHNICIAN: VITA 07/29/19 1135 RPT#: [id number] DC DATE: STATUS: ADM IN [facility] [address] [place] [address] END OF REPORT
--- NOTE | 2019-07-29 12:48 | NUR ---
REPORT CALLED TO [facility]. IV AND TELEMETRY DCD. LEAVING FOR NH BY EMS.
--- NOTE | 2019-07-30 09:07 | MORECARE ---
CASE MANAGEMENT DISCHARGE SUMMARY PATIENT: ALYX HERNANDES UNIT: [id number] ADM DATE: 07/24/19 AGE: 68 : 50 SEX: M ROOM/BED: D.2117 AUTHOR: NATALIADOC PHYSICIAN: REFERRING PHYSICIAN: RIGOBERTO CHEUNG MD DATE OF SERVICE: 07/30/19 Discharge Plan Patient Name: ALYX HERNANDES [facility]:[place] : 1950 Planned Disposition: Nursing Facility RISA Cert Anticipated Discharge Date: Discharge Date: 07/29/2019 Expected LOS: Initial Reviewer: [email or web address] Initial Review Date: 07/28/2019 Generated: 07/30/19 10:07 am Comments DCP- Discharge Planning Updated by [email or web address]: Evita Soni on 07/29/19 10:[address] I called Sally Pierce and left a message that her father was returning to [facility] as planned today. I also informed her of the IMM and number to call for appeal and my call back number. She had expressed yesterday that she agrees with discharge when physician was ready. No address for family member on face sheet. I called [facility] and the business office states they were unsure if patient was discharging to a skilled or Medicaid bed that they were running benefits. DCP- Discharge Planning Updated by [id number]: Evita Soni on 07/29/19 9:[address] CM received discharge order. CM called and spoke to Nirmala at [facility] and clinical faxed. He will need to transfer via ambulance since he is bed ridden. Nirmala states she will call be back after speaking with storage administrator. CM will continue to follow and assist with discharge planning/needs. DCP- Discharge Planning Updated by [id number]: Evita Soni on 07/28/19 1:[address] I attempted to call [facility] with no answer, I left my call back number on voice mail of director of special services. Updated clinical faxed to [facility]. DCP- Discharge Planning Updated by [id number]: Evita Soni on 07/28/19 1:[address] Patient Name: ALYX HERNANDES Admission Status: ER Accout number: [id number] Admission Date: 07-24-2019 : 1950 Admission Diagnosis:ACUTE KIDNEY FAILURE, UNSPECIFIED Attending: RIGOBERTO CHEUNG Current LOS: 4 Anticipated DC Date: Planned Disposition: Nursing Facility [facility] Primary Insurance: MEDICARE A & B Discharge Planning Comments: CM met with patient to discuss discharge planning/needs. He is confused. I called patient's daughter, Sally Pierce, that is listed on [place] paperwork as first contact. Sally states he has lived at [facility] since last September and the plan would be for him to return there on discharge. States prior to Covid -19, he was able to ambulate with a walker. States she has been unable to visit because of Covid-19, so cannot say how long it has been since he was walking. States typically he does not wear oxygen at the retirement. No other needs at this time. Subscription Agent: Evita Soni DCPIA - Discharge Planning Initial Assessment Updated by [email or web address]: Evita Soni on 07/28/19 2:39 pm * Is the patient Alert and Oriented? No * How many steps to enter\exit or inside your home? 0/0 * PCP Dr. Cheung * Pharmacy [facility] * Preadmission Environment Corporate Paralegal Shelter * Facility Name [facility] [address] * ADLs Total Dependent * Equipment Walker Wheelchair * List name and contact numbers for known caregivers / representatives who currently or will assist patient after discharge: Sally Pierce - DTR - [phone] Lizevelia Bustillos - R - [phone] * Verbal permission to speak to the caregivers and representatives has been obtained from the patient. Yes * Community resources currently utilized None * Additional services required to return to the preadmission environment? No * Can the patient safely return to the preadmission environment? Yes * Has this patient been hospitalized within the prior 30 days at any hospital? No Coverage Notice Reviewer: [id number] - Evita Soni Notice Issued Date-Time: 07/29/2019 11:25 Notice Type: IM Discharge Notice Notice Delivered To: Family Member Relationship to Patient: Daughter Prepress Technician Name: Sally Pierce Delivery Method: CERT - Certified Mail Dora Days: Prior Verbal Notification: Recipient Understood Notice: Yes Recipient Signature: Med Rec Note Co-signed by Attending: Coverage Notice Comment: I called Sally Pierce and left a message about IMM and telephone number for call. Reviewer: [id number] - Evita Soni Notice Issued Date-Time: 07/28/2019 14:30 Notice Type: Patient Choice Letter Notice Delivered To: Family Member Relationship to Patient: Daughter Prepress Technician Name: Sally Pierce Delivery Method: PHONE - Phone Dora Days: Prior Verbal Notification: Recipient Understood Notice: Yes Recipient Signature: Med Rec Note Co-signed by Attending: Coverage Notice Comment: [facility] for [facility] Last DP export: 07/29/19 10:35 am Patient Name: ALYX HERNANDES Page [id number] at 0907 All edits/amendments must be made on the electronic document DICTATION DATE: 07/30/19906 AIRBORNE MISSIONS SYSTEMS: VITA 07/30/19906 RPT#: [id number] DC DATE:07/29/19 STATUS: DIS IN [facility] [address] [place] [address] END OF REPORT
--- NOTE | 2019-07-30 11:23 | MORECARE ---
CASE MANAGEMENT DISCHARGE SUMMARY PATIENT: ALYX HERNANDES UNIT: [id number] ADM DATE: 07/24/19 AGE: 68 : 50 SEX: M ROOM/BED: D.2117 AUTHOR: NATALIADOC PHYSICIAN: REFERRING PHYSICIAN: RIGOBERTO CHEUNG MD DATE OF SERVICE: 07/30/19 Discharge Plan Patient Name: ALYX HERNANDES Facility: [facility]:[place] : 1950 Planned Disposition: Nursing Facility RISA Cert Anticipated Discharge Date: Discharge Date: 07/29/2019 Expected LOS: Initial Reviewer: [email or web address] Initial Review Date: 07/28/2019 Generated: 07/30/19 12:22 pm Comments DCP- Discharge Planning Updated by [email or web address]: Evita Soni on 07/30/19 10:[address] I spoke with Patito at [facility] and Rehab, patient discharged to a skilled bed. DCP- Discharge Planning Updated by [id number]: Evita Soni on 07/29/19 10:[address] I called Sally Pierce and left a message that her father was returning to [facility] as planned today. I also informed her of the IMM and number to call for appeal and my call back number. She had expressed yesterday that she agrees with discharge when physician was ready. No address for family member on face sheet. I called [facility] and the business office states they were unsure if patient was discharging to a skilled or Medicaid bed that they were running benefits. DCP- Discharge Planning Updated by [id number]: Evita Soni on 07/29/19 9:[address] CM received discharge order. CM called and spoke to Nirmala at [facility] and clinical faxed. He will need to transfer via ambulance since he is bed ridden. Nirmala states she will call be back after speaking with health administrator. CM will continue to follow and assist with discharge planning/needs. DCP- Discharge Planning Updated by [id number]: Evita Soni on 07/28/19 1:[address] I attempted to call [facility] with no answer, I left my call back number on voice mail of director of slot operations. Updated clinical faxed to [facility]. DCP- Discharge Planning Updated by [id number]: Evita Soni on 07/28/19 1:[address] Patient Name: ALYX HERNANDES Admission Status: ER Accout number: [id number] Admission Date: 07-24-2019 : 1950 Admission Diagnosis:ACUTE KIDNEY FAILURE, UNSPECIFIED Attending: RIGOBERTO CHEUNG Current LOS: 4 Anticipated DC Date: Planned Disposition: Nursing Facility [facility] Primary Insurance: MEDICARE A & B Discharge Planning Comments: CM met with patient to discuss discharge planning/needs. He is confused. I called patient's daughter, Sally Pierce, that is listed on [place] paperwork as first contact. Sally states he has lived at [facility] since last September and the plan would be for him to return there on discharge. States prior to Covid -19, he was able to ambulate with a walker. States she has been unable to visit because of Covid-19, so cannot say how long it has been since he was walking. States typically he does not wear oxygen at the long-term. No other needs at this time. Pl Sql Programmer: Evita Soni DCPIA - Discharge Planning Initial Assessment Updated by [id number]: Evita Soni on 07/28/19 2:39 pm * Is the patient Alert and Oriented? No * How many steps to enter\exit or inside your home? 0/0 * PCP Dr. Cheung * Pharmacy [facility] * Preadmission Environment Prison Assisted * Facility Name [place] [address] * ADLs Total Dependent * Equipment Walker Wheelchair * List name and contact numbers for known caregivers / representatives who currently or will assist patient after discharge: Sally Pierce - DTR - [phone] Liz Bustillos - DTR - [phone] * Verbal permission to speak to the caregivers and representatives has been obtained from the patient. Yes * Community resources currently utilized None * Additional services required to return to the preadmission environment? No * Can the patient safely return to the preadmission environment? Yes * Has this patient been hospitalized within the prior 30 days at any hospital? No Coverage Notice Reviewer: [id number] - Evita Soni Notice Issued Date-Time: 07/29/2019 11:25 Notice Type: IM Discharge Notice Notice Delivered To: Family Member Relationship to Patient: Daughter Eap Specialist Name: Sally Pierce Delivery Method: CERT - Certified Mail Dora Days: Prior Verbal Notification: Recipient Understood Notice: Yes Recipient Signature: Med Rec Note Co-signed by Attending: Coverage Notice Comment: I called Sally Pierce and left a message about IMM and telephone number for call. Reviewer: [id number] Sue Soni Notice Issued Date-Time: 07/28/2019 14:30 Notice Type: Patient Choice Letter Notice Delivered To: Family Member Relationship to Patient: Daughter Eap Specialist Name: Sally Pierce Delivery Method: PHONE - Phone Dora Days: Prior Verbal Notification: Recipient Understood Notice: Yes Recipient Signature: Med Rec Note Co-signed by Attending: Coverage Notice Comment: [facility] [place] [facility] Last DP export: 07/30/19 8:07 a Patient Name: ALYX HERNANDES Page [phone] at 1123 All edits/amendments must be made on the electronic document DICTATION DATE: 07/30/19 112 FITTING SUPERVISOR: VITA 07/30/19 112 RPT#: [id number] DC DATE:07/29/19 STATUS: DIS IN [facility] [address] [place] [address] END OF REPORT
== END 2019-07-29 12:50 | DRG 871 ==
LOC: D.ER 09:07 → D.M2 12:22
PROVIDERS: Emergency Medicine; Family Medicine; ADMIT Legal Medicine; ATTEND Legal Medicine
DX: A41.9 Sepsis, unspecified organism (principal); R40.2344 Coma scale, best motor response, flexion withdrawal, 24 hours or more after hospital admission; N17.9 Acute kidney failure, unspecified; L03.90 Cellulitis, unspecified; E86.0 Dehydration; I25.10 Atherosclerotic heart disease of native coronary artery without angina pectoris; I10 Essential (primary) hypertension; K21.9 Gastro-esophageal reflux disease without esophagitis; F41.8 Other specified anxiety disorders; F03.90 Unspecified dementia, unspecified severity, without behavioral disturbance, psychotic disturbance, mood disturbance, and anxiety; I48.91 Unspecified atrial fibrillation; R40.2134 Coma scale, eyes open, to sound, 24 hours or more after hospital admission; R40.2244 Coma scale, best verbal response, confused conversation, 24 hours or more after hospital admission

== ENCOUNTER 2019-08-03 20:08 | Inpatient (IN) | payer MEDICARE ==
[~2019-08-03] VITALS: Ht 182.9 cm; Wt 105.1 kg
[~2019-08-03 20:08] MED LIST: ATIVAN0.5 MG PO; BENZTROPINE MESY1 MG PO; BUSPAR 15 MG TA15 MG PO; DECADRON4 MG PO; DONEPEZIL HCL10 MG PO; DOXYCYCLINE HY100 M2 PO; EFFEXOR XR150 MG PO; FLOMAX0.4 MG PO; FUROSEMIDE20 MG PO; KEPPRA500 MG PO; KLOR-CON M2020 MEQ PO; MELATONIN 3 MG1 TAB PO; MOBIC7.5 MG PO; OMEPRAZOLE40 MG PO; PROMOD LIQUID P30 M1 PO; TYLENOL ARTHRI650 MG PO; ULTRAM50 MG PO; VITAMIN B-1100 M1 PO; VITAMIN D5000 UNI1 PO; ZYPREXA10 MG PO
[2019-08-03 21:00] VITALS: BP 103/74
[2019-08-03 21:01] LABS: BASOPHILS 0.1 % (0-2); EOSINOPHILS 0.1 % (0-7); HEMATOCRIT 36.2 % (42.0-54.0); HEMOGLOBIN 11.5 g/dL (13.5-17.5); IMMATURE GRANULOCYTES 1.3 % (0-5); LYMPHOCYTES 4.5 % (15-50); MCH 30.6 pg (26.0-34.0); MCHC 31.8 g/dL (31.0-37.0); MCV 96.3 fL (80.0-100.0); MEAN PLATELET VOLUME 9.9 fL (7.4-10.4); MONOCYTES 4.9 % (2-11); NEUTROPHILS 89.1 % (40-80); RBC 3.76 10x6/uL (4.20-6.10); WBC 14.3 10x3/uL (4.8-10.8)
[2019-08-03 21:03] LABS: PLATELET COUNT 383 10x3/uL (130-400)
[2019-08-03 21:10] LABS: APTT 28.4 SECONDS (22.8-39.4); INR 1.07 (0.85-1.17); PROTIME 13.9 SECONDS (11.6-15.0)
[2019-08-03 21:29] LABS: CARBON DIOXIDE 31.3 mmol/L (21.0-32.0); CKMB 0.7 U/L (0.0-3.6); CREATINE KINASE 28 UL (21-232); GLUCOSE 108 mg/dL (74-106); LIPASE 211 U/L (73-393); PRO BNP 1394 pg/mL (0-125); TROPONIN-I 0.021 ng/mL (0.000-0.060); UREA NITROGEN 25 mg/dL (7-18)
[2019-08-03 21:45] LABS: ALBUMIN 2.2 g/dL (3.4-5.0); ALKALINE PHOSPHATASE 91 U/L (30-120); ALT (SGPT) 43 U/L (10-68); BILIRUBIN - TOTAL 0.54 mg/dL (0.2-1.3); CALC OSMOLALITY 280 mosm/kg (275-300); CHLORIDE - SERUM 102 mmol/L (98-107); CREATININE - SERUM 1.2 mg/dL (0.6-1.3); POTASSIUM - SERUM 3.9 mmol/L (3.5-5.1); PROTEIN - SERUM 5.5 g/dL (6.4-8.2); SODIUM 138 mmol/L (136-145); eGFR NON AFRICAN AMERICAN 64 mL/min (90-120)
[2019-08-03 22:00] VITALS: BP 98/74
--- NOTE | 2019-08-03 22:10 | NUR ---
DRESSING OF ABD PADS AND MIYA PLACED TO WOUNDS ON RIGHT LEG, PT HAS ULCERATION TO POSTERIOR CALF APPROX 24 CM IN LENGTH, AND 4 CM WIDE. PT HAS ALVULSION TO RIGHT LATERAL CALF APPROX. 15 CM IN LENGTH.
[2019-08-03 22:17] LABS: BILIRUBIN NEGATIVE (NEGATIVE); GLUCOSE NEGATIVE (NEGATIVE); KETONE NEGATIVE (NEGATIVE); NITRITE NEGATIVE (NEGATIVE); UROBILINOGEN NORMAL (NORMAL)
[2019-08-03 22:27] LABS: UDS - AMPHET NEGATIVE QUAL (NEGATIVE); UDS - BARB NEGATIVE QUAL (NEGATIVE); UDS - BENZO NEGATIVE QUAL (NEGATIVE); UDS - COCAINE NEGATIVE QUAL (NEGATIVE); UDS - OPIATE NEGATIVE QUAL (NEGATIVE); UDS - PCP NEGATIVE QUAL (NEGATIVE); UDS - THC NEGATIVE QUAL (NEGATIVE)
[2019-08-03 23:23] VITALS: BP 95/46
[2019-08-04] VITALS (7 sets, daily range): BP systolic 91–122; BP diastolic 41–81; Ht 182.9 cm; Wt 105.1 kg
[2019-08-04 01:57] LABS: BASOPHILS 0.3 % (0-2); EOSINOPHILS 0.2 % (0-7); HEMATOCRIT 40.8 % (42.0-54.0); HEMOGLOBIN 12.7 g/dL (13.5-17.5); IMMATURE GRANULOCYTES 1.6 % (0-5); LYMPHOCYTES 6.1 % (15-50); MCH 29.9 pg (26.0-34.0); MCHC 31.1 g/dL (31.0-37.0); MEAN PLATELET VOLUME 10.2 fL (7.4-10.4); MONOCYTES 6.8 % (2-11); PLATELET COUNT 315 10x3/uL (130-400); RBC 4.25 10x6/uL (4.20-6.10); RDW 14.1 % (11.5-14.5); WBC 10.3 10x3/uL (4.8-10.8)
[2019-08-04 02:15] LABS: CKMB 1.8 U/L (0.0-3.6); CREATINE KINASE 104 UL (21-232); TROPONIN-I < 0.017 ng/mL (0.000-0.060)
--- NOTE | 2019-08-04 03:00 | NUR ---
NO TELE AVAILABLE FOR WHEN PT IS ADMITTED PT ON WAITING LIST
--- NOTE | 2019-08-04 03:05 | NUR ---
VIA STRETCHER TO BED BED LOQW AND LOCKED SR X3 AND BED ALARM IN PLACE PT HAS MULTIPLE WOUNDS THROUGH OUT EXTREMITIES COVERED WITH GAUZE OPEN GASH TO RT LEG REINFORCED NOW WITH GAUZE AND KERLIX CLEANED PT OF BOWEL MOVEMENT AND EFFORTS MADE TO COMFORT
--- NOTE | 2019-08-04 10:01 | NUR ---
PT HAD LARGE INCONTINENT BM. COMPLETE BED BATH GIVEN AND LINEN CHANGE DONE.
--- NOTE | 2019-08-04 13:55 | NUR ---
RIGHT FA IV 22G INFILTRATED. DC'D WITH CATH INTACT.
--- NOTE | 2019-08-04 14:46 | NUR ---
I have reviewed this patient and I concur with the Shift Assessment completed by the Licensed Practical Nurse today this shift.
--- NOTE | 2019-08-04 15:01 | NUR ---
PT HAD INCONTINET BM. WHILE CHANGING PT. HE WAS CUSSIGNA THTIS NURSE AND BRANCH LEAD AND HIT THIS NURSE.
--- NOTE | 2019-08-04 16:24 | NUR ---
RENATO RN INSERTED A 22G IV IN LEFT SHOULDER AFTER SEVERAL ATTEMPTS. SHE STATES PT WILL NEED SOMETHING ELSE TOMORROW IN IJ. SHE STATES EXTREMITIES ARE NOT A CANDIDATE FOR PIV OR PICC OR MIDLINE BECAUSE OF WOUNDS. I VERBALIZED UNDERSTANDING.
--- NOTE | 2019-08-04 16:31 | NUR ---
Pt was admitted with numerous skin issues including bruising, lacerations, skin tears, pressure injury and excoriation due to incontinence. Right antecubital space has skin tear with xeroform gauze attached to wound bed. Have attempted to dislocate it from wound bed by soaking with saline and elta cream. Right lower leg (calf) has a large laceration that is a result of a fall. Left hip is bruised, coccyx has a small nonblanchable red area (stage 1 pressure injury), buttocks and perineal area are excoriated from moisture related to incontinence. Left scapula and shoulder have large skin tears as do both arms. Recommend mepilex sacral dressing for protection on sacrum. Xeroform gauze on all open areas of skin, covered with 4x4s and secured with kerlix. Wound care will continue monitoring.
--- NOTE | 2019-08-04 23:41 | NUR ---
CONT TO BE COMBATIVE WHEN AWAKEN AND NOT ALLOWING VS TO BE TAKEN
[2019-08-05 00:30] VITALS: BP 95/60
[2019-08-05 05:16] VITALS: BP 95/55
--- NOTE | 2019-08-05 07:33 | NUR ---
REPORT RECIEVED. PT LYING ON BACK. RR EVEN AND UNLABORED ON RA. HE HAS A L SHOULDER IV THAT IS SL . BED LOCKED AND IN LOWEST POSITION, CALL LIGHT WITHIN REACH. WILL CTM
[2019-08-05 09:36] VITALS: BP 113/52
[2019-08-05 10:01] LABS: BASOPHILS 0.2 % (0-2); EOSINOPHILS 0.1 % (0-7); HEMATOCRIT 35.1 % (42.0-54.0); IMMATURE GRANULOCYTES 0.8 % (0-5); LYMPHOCYTES 5.6 % (15-50); MCH 30.4 pg (26.0-34.0); MCHC 31.3 g/dL (31.0-37.0); MONOCYTES 5.2 % (2-11); NEUTROPHILS 88.1 % (40-80); RBC 3.62 10x6/uL (4.20-6.10); RDW 14.1 % (11.5-14.5); WBC 10.4 10x3/uL (4.8-10.8)
[2019-08-05 10:20] LABS: ANION GAP 11.4 mmol/L (8-16); CALCIUM 8.1 mg/dL (8.5-10.1); CARBON DIOXIDE 27.8 mmol/L (21.0-32.0); CREATININE - SERUM 1.1 mg/dL (0.6-1.3)
[2019-08-05 10:21] LABS: POTASSIUM - SERUM 3.2 mmol/L (3.5-5.1)
[2019-08-05 10:23] LABS: PLATELET COUNT 449 10x3/uL (130-400)
[2019-08-05 14:24] VITALS: BP 138/42
--- NOTE | 2019-08-05 16:44 | NUR ---
I have reviewed this patient and I concur with the Shift Assessment completed by the Licensed Practical Nurse today this shift.
--- NOTE | 2019-08-05 16:49 | NUR ---
I have reviewed this patient and I concur with the Shift Assessment completed by the Licensed Practical Nurse today this shift.
[2019-08-05 18:45] VITALS: BP 96/64
--- NOTE | 2019-08-05 19:00 | NUR ---
EVENING ROUNDS COMPLETE. PT LAYING IN BED. NO SIGNS OF DISTRESS. PT DENIES ANY NEEDS AT THIS TIME. CL IN REACH, BED IN LOWEST POSITION.
[2019-08-05 20:00] VITALS: BP 115/34
[2019-08-06] VITALS: BP 112/63
[2019-08-06 04:00] VITALS: BP 133/106
[2019-08-06 06:21] LABS: BASOPHILS 0.3 % (0-2); EOSINOPHILS 0.4 % (0-7); HEMATOCRIT 32.5 % (42.0-54.0); HEMOGLOBIN 10.1 g/dL (13.5-17.5); IMMATURE GRANULOCYTES 1.6 % (0-5); LYMPHOCYTES 10.3 % (15-50); MCHC 31.1 g/dL (31.0-37.0); MCV 96.4 fL (80.0-100.0); MEAN PLATELET VOLUME 9.8 fL (7.4-10.4); MONOCYTES 7.8 % (2-11); NEUTROPHILS 79.6 % (40-80); PLATELET COUNT 387 10x3/uL (130-400); RBC 3.37 10x6/uL (4.20-6.10); RDW 14.3 % (11.5-14.5)
[2019-08-06 06:35] LABS: ANION GAP 10.8 mmol/L (8-16); CALCIUM 7.9 mg/dL (8.5-10.1); CARBON DIOXIDE 26.4 mmol/L (21.0-32.0); CREATININE - SERUM 1.1 mg/dL (0.6-1.3); POTASSIUM - SERUM 3.2 mmol/L (3.5-5.1)
[2019-08-06 06:42] LABS: WBC 6.8 10x3/uL (4.8-10.8)
--- NOTE | 2019-08-06 07:30 | NUR ---
REPORT RECIEVED. PT SITTING SEMI FOWLERS IN BED. RR EVEN AND UNLABORED ON RA. HE HAS A R UPPER ARM MIDLINE THAT IS SL. BED LOCKED AND IN LOWEST POSITION, CALL LIGHT WITHIN REACH. WILL CTM
--- NOTE | 2019-08-06 13:45 | NUR ---
Nutrition Follow-up: Pt remains confused. Ate ~50% of breakfast this AM. Skin issues noted. ST following. Diet: Regular, Mech Soft Wt: 196.2# (08/04); 198# (08/03) Last BM: 08/04 per chart Labs noted: K+ 3.2, Ca 7.9 Meds noted: Lasix, KDur, Protonix -Encourage PO intake and honor food preferences within diet restrictions. -+Ensure with meals. -Monitor wt; noted daily wts ordered. -RD following.
--- NOTE | 2019-08-06 17:47 | NUR ---
I have reviewed this patient and I concur with the Shift Assessment completed by the Licensed Practical Nurse today this shift.
--- NOTE | 2019-08-06 19:31 | NUR ---
CALLED ANSLEY COX TO NOTIFY THAT PATIENT PULLED OUT HISW MIDLINE, ANSLEY ASKED TO PUT IN A NEW ORDER TO HAVE ANOTHER PLACED TOMORROW. WILL FOLLOW OUT ORDERS.
[2019-08-06 20:00] VITALS: BP 138/63
[2019-08-07 04:00] VITALS: BP 110/58
--- NOTE | 2019-08-07 04:48 | NUR ---
GAVE PATIENT A COMPLETE BATH, CHANGED ALL DRESSINGS. PATIENT TOLERATED WELL.
--- NOTE | 2019-08-07 05:01 | NUR ---
REPORT RECEIVED AND ROUNDING COMPLETE. PATIENT HAD WATER STOOL AND A SOAKED BED, DAY NURSE JAGUAR AND ANOTHER CLEANED PATIENT UP AND CHANGED BED. WHILE CHANGING BED THEY NOTICED THE PAITNET HAD PULLED OUT HIS MIDLINE. NO BLEEDING NOTED AND CATH INTACT. CALL LIGHT WITHIN REACH AND BED IN LOWEST LOCKED POSITION.
[2019-08-07 06:21] LABS: BASOPHILS 0.3 % (0-2); EOSINOPHILS 0.3 % (0-7); HEMATOCRIT 32.2 % (42.0-54.0); HEMOGLOBIN 10.1 g/dL (13.5-17.5); IMMATURE GRANULOCYTES 1.8 % (0-5); LYMPHOCYTES 11.8 % (15-50); MCH 29.9 pg (26.0-34.0); MCHC 31.4 g/dL (31.0-37.0); MCV 95.3 fL (80.0-100.0); MEAN PLATELET VOLUME 9.7 fL (7.4-10.4); MONOCYTES 9.4 % (2-11); NEUTROPHILS 76.4 % (40-80); PLATELET COUNT 464 10x3/uL (130-400); RBC 3.38 10x6/uL (4.20-6.10); RDW 14.1 % (11.5-14.5); WBC 6.8 10x3/uL (4.8-10.8)
[2019-08-07 06:58] LABS: CALC OSMOLALITY 280 mosm/kg (275-300); CALCIUM 7.9 mg/dL (8.5-10.1); CARBON DIOXIDE 30.1 mmol/L (21.0-32.0); CHLORIDE - SERUM 108 mmol/L (98-107); CREATININE - SERUM 0.9 mg/dL (0.6-1.3); GLUCOSE 84 mg/dL (74-106); SODIUM 142 mmol/L (136-145); UREA NITROGEN 10 mg/dL (7-18); eGFR NON AFRICAN AMERICAN 89 mL/min (90-120)
[2019-08-07 07:00] LABS: POTASSIUM - SERUM 2.7 mmol/L (3.5-5.1)
[2019-08-07 09:26] VITALS: BP 101/56
[2019-08-07 15:52] VITALS: BP 123/54
--- NOTE | 2019-08-07 17:05 | NUR ---
RESTS IN BED WITH EYES CLOSED. IV PATENT. CALL LIGHT IN REACH.
--- NOTE | 2019-08-07 18:43 | NUR ---
I have reviewed this patient and I concur with the Shift Assessment completed by the Licensed Practical Nurse today this shift.
--- NOTE | 2019-08-07 19:53 | NUR ---
PT RESTING IN BED WITH EYES CLOSED EASILY AWAKEN WITH VOICE STIMULATION. NO SIGNS OR SYMPOTMS OF DISTRESS NOTED. RESPIRATIONS EVEN AND UNLABORD. CALL LIGHT AND OTHER PERSONAL ITEMS WITH IN REACH. WILL CONTINUE TO MONITOR
[2019-08-07 20:00] VITALS: BP 125/56
[2019-08-08] VITALS: BP 118/57
--- NOTE | 2019-08-08 03:01 | NUR ---
BATH DONE AND LINEN CHANGED. LARGE BMx1. DRESSING CHANGED TO RIGHT CALF PER DR. JAIMES. PT TOLERATED WELL. NO SIGNS OF DISTRESS NOTED. PT REPOSITIONED FOR COMFORT. NO COMPLAINTS AT THIS TIME. CALL LIGHT AND OTHER PERSONAL ITEMS WITH IN REACH. WILL CONTINUE TO MONITOR
--- NOTE | 2019-08-08 03:45 | NUR ---
DRESSING CHANGE TO RIGHT CALF. PT TOLERATED WELL. NO SIGNS OF DISTRESS NOTED. PT REPOSITIONED FOR COMFORT. DRINK OF WATER PROVIDED PER PT REQUEST. CALL LIGHT AND OTHER PERSONAL ITEMS WITH IN REACH. WILL CONTINUE TO MONITOR
[2019-08-08 04:00] VITALS: BP 115/55
[2019-08-08 07:04] LABS: ANION GAP 10.2 mmol/L (8-16); CALCIUM 7.8 mg/dL (8.5-10.1); CARBON DIOXIDE 26.8 mmol/L (21.0-32.0); VANCOMYCIN - RANDOM 24.1 ug/mL (10.0-20.0)
[2019-08-08 07:10] LABS: CREATININE - SERUM 1.2 mg/dL (0.6-1.3)
[2019-08-08 08:48] LABS: BASOPHILS 0.7 % (0-2); EOSINOPHILS 0.7 % (0-7); HEMOGLOBIN 10.1 g/dL (13.5-17.5); IMMATURE GRANULOCYTES 4.1 % (0-5); LYMPHOCYTES 15.6 % (15-50); MCH 29.7 pg (26.0-34.0); MCHC 30.6 g/dL (31.0-37.0); MCV 97.1 fL (80.0-100.0); MEAN PLATELET VOLUME 9.6 fL (7.4-10.4); MONOCYTES 8.1 % (2-11); NEUTROPHILS 70.8 % (40-80); PLATELET COUNT 489 10x3/uL (130-400); RDW 14.3 % (11.5-14.5); WBC 7.4 10x3/uL (4.8-10.8)
[2019-08-08 10:01] VITALS: BP 119/56
--- NOTE | 2019-08-08 12:57 | MORECARE ---
CASE MANAGEMENT DISCHARGE SUMMARY PATIENT: ALYX HERNANDES UNIT: [id number] ADM DATE: 08/04/19 AGE: 68 : 50 SEX: M ROOM/BED: D.2138 AUTHOR: GIRMA FISHER PHYSICIAN: REFERRING PHYSICIAN: RIGOBERTO CHEUNG MD DATE OF SERVICE: 08/08/19 Discharge Plan Patient Name: ALYX HERNANDES [facility] [facility] 1950 Planned Disposition: Home Anticipated Discharge Date: Discharge Date: Expected LOS: Initial Reviewer: [email or web address] Initial Review Date: 08/04/2019 Generated: 08/08/19 1:56 pm DCPIA - Discharge Planning Initial Assessment Updated by [id number]: Rosanne Cardoza on 08/08/19 12:55 pm * Is the patient Alert and Oriented? No * PCP [facility] * Pharmacy [facility] * Preadmission Environment Rn Private Duty Acute Care Facility * Facility Name [facility] * ADLs Partial Dependent * Additional services required to return to the preadmission environment? No * Can the patient safely return to the preadmission environment? Yes * Has this patient been hospitalized within the prior 30 days at any hospital? Yes External Providers External Provider: [facility] Next Contact Date: Service Request Date: Service Type: Resolution: Reviewer: Comments: Patient Name: ALYX HERNANDES Page [phone] at 1257 All edits/amendments must be made on the electronic document DICTATION DATE: 08/08/19 1256 LEVEL GLASS FORMING MACHINE OPERATOR: VITA 08/08/19 1256 RPT#: [id number] DC DATE: STATUS: ADM IN [facility] [address] [place] [address] END OF REPORT
--- NOTE | 2019-08-08 13:04 | MORECARE ---
CASE MANAGEMENT DISCHARGE SUMMARY PATIENT: ALYX HERNANDES UNIT: [id number] ADM DATE: 08/04/19 AGE: 68 : 50 SEX: M ROOM/BED: D.3954 AUTHOR: GIRMA FISHER PHYSICIAN: REFERRING PHYSICIAN: RIGOBERTO CHEUNG MD DATE OF SERVICE: 08/08/19 Discharge Plan Patient Name: ALYX HERNANDES Facility: [facility]:[place] : 1950 Planned Disposition: Home Anticipated Discharge Date: Discharge Date: Expected LOS: Initial Reviewer: [email or web address] Initial Review Date: 08/04/2019 Generated: 08/08/19 2:04 pm Comments DCP- Discharge Planning Updated by [email or web address]: Rosanne Cardoza on 08/08/19 12:[address] Patient Name: ALYX HERNANDES Admission Status: ER Accout number: [id number] Admission Date: 08-04-2019 : 1950 Admission Diagnosis:SEPSIS, UNSPECIFIED ORGANISM Attending: RIGOBERTO CHEUNG Current LOS: 4 Anticipated DC Date: Planned Disposition: Home Primary Insurance: MEDICARE A & B Discharge Planning Comments: CM met with patient to complete initial dc planning assessment. CM educated patient on the CM role and verbal consent given by patient to complete assessment. CM verified patient's address, phone number, and emergency contact phone numbers. Patient is confused and unable to answer questions. He is a resident at [facility] in a extermination inspector bed. At discharge patient plans to return to [facility] and feels this is a safe discharge. Patient denied further known discharge needs at this time. . Transportation provider at discharge will be [facility]. CM will continue to follow and will assist as needed with dc plans/needs. Lieutenant/Deputy: Rosanne Cardoza MSN,RN,CM DCPIA - Discharge Planning Initial Assessment Updated by [email or web address]: Rosanne Cardoza on 08/08/19 12:55 pm * Is the patient Alert and Oriented? No * PCP PER [facility] * Pharmacy [facility] * Preadmission Environment Plant Senior Manager Acute Care Facility * Facility Name [facility] * ADLs Partial Dependent * Additional services required to return to the preadmission environment? No * Can the patient safely return to the preadmission environment? Yes * Has this patient been hospitalized within the prior 30 days at any hospital? Yes Last DP export: 08/08/19 11:57 a Patient Name: ALYX HERNANDES Page 72745 at 1304 All edits/amendments must be made on the electronic document DICTATION DATE: 08/08/19 1304 ARCHITECTURAL TECHNICIAN: VITA 08/08/19 1304 RPT#: [id number] DC DATE: STATUS: ADM IN [facility] [address] [place] [address] END OF REPORT
--- NOTE | 2019-08-08 13:12 | NUR ---
TALKED WITH PT DAUGHTER, KEVIN, AND SHE IS ASKING WHAT ARE OPTIONS OF POSSIBLY GOING TO [facility] ON DISCHARGE VERSUS GOING TO [facility]. CASE MGMT INFORMED.
--- NOTE | 2019-08-08 14:15 | NUR ---
Nutrition Follow-up: At time of visit this AM, nursing reports pt had not been awake yet to eat breakfast but that he ate fairly well yesterday. Diet: Regular, Mech Soft, Ensure TID WT: 196.2# (08/04) Labs noted: K+ 3.0, Ca 7.8 Meds noted: Protonix, Lasix, KDur -Encourage PO intake and honor food preferences within diet restrictions. -Need new wt; noted daily wts ordered. -RD following.
[2019-08-08 15:09] VITALS: BP 131/50
--- NOTE | 2019-08-08 20:00 | NUR ---
PT PULLED IV OUT WITH END STILL INTACT. NO SIGNS OF DISTRESS NOTED. WILL CONTINUE TO MONITOR
[2019-08-08 20:50] VITALS: BP 88/55
--- NOTE | 2019-08-08 22:37 | NUR ---
PT LYING IN BED AWAKE AND ALERT. PT HAS SOME CONFUSION TO PLACE AND SITUATION. NO DISTRESS NOTED AT THIS TIME. RESPIRATIONS EVEN AND UNLABORED. BED BATH DONE AND LINEN CHANGED. PT HAS NO COMPLAINTS AT THIS TIME. BM X1. PT REPOSITIONED FOR COMFORT. CALL LIGHT AND OTHER PERSONAL ITEMS WITH IN REACH. BED ALARM ON AND ACTIVE. WILL CONTINUE TO MONITOR
[2019-08-09 00:49] VITALS: BP 98/59
--- NOTE | 2019-08-09 01:40 | NUR ---
PT RESTING IN BED QUIETLY WITH EYES CLOSED. EASILY AWAKEN WITH VOICE STIMULATION. COFFEE PROVIDED PER PT REQUEST. PT HAS NO FURTHER COMPLAINTS AT THIS TIME. DRESSINGS TO RIGHT CALF AND ARMS BILATERLLY CHANGED PER DR ORDERS. CALL LIGHT AND OTHER PERSONAL ITEMS WITH IN REACH. BED ALARM ON AND ACTIVE. PT URINATED IN URINAL. BED IS IN ITS LOWEST POSITION. SIDERAILS UP x2. WILL CONTINUE TO MONITOR
[2019-08-09 05:18] VITALS: BP 105/71
--- NOTE | 2019-08-09 06:31 | NUR ---
I have reviewed this patient and I concur with the Shift Assessment completed by the Licensed Practical Nurse today this shift.
[2019-08-09 08:11] LABS: HEMATOCRIT 30.5 % (42.0-54.0); HEMOGLOBIN 9.3 g/dL (13.5-17.5); MCH 30.1 pg (26.0-34.0); MCHC 30.5 g/dL (31.0-37.0); MCV 98.7 fL (80.0-100.0); MEAN PLATELET VOLUME 9.7 fL (7.4-10.4); PLATELET COUNT 464 10x3/uL (130-400); RBC 3.09 10x6/uL (4.20-6.10); RDW 14.7 % (11.5-14.5); WBC 6.9 10x3/uL (4.8-10.8)
[2019-08-09 08:15] VITALS: BP 128/67
[2019-08-09 08:39] LABS: CALCIUM 8.1 mg/dL (8.5-10.1); CARBON DIOXIDE 28.3 mmol/L (21.0-32.0); CREATININE - SERUM 1.2 mg/dL (0.6-1.3); POTASSIUM - SERUM 3.3 mmol/L (3.5-5.1); VANCOMYCIN - RANDOM 15.8 ug/mL (10.0-20.0)
[2019-08-09 08:49] LABS: LYMPHOCYTES 19 % (15-50); MONOCYTES 1 % (2-11); NEUTROPHILS 80 % (40-80); PLATELET ESTIMATE INCREASED
[2019-08-09 11:23] VITALS: BP 112/53
[2019-08-09 20:00] VITALS: BP 122/66
--- NOTE | 2019-08-09 20:00 | NUR ---
PERIPHERAL IV LOCATED ON FLOOR WITH END STILL INTACT. STIE WHERE PIV WAS LOCATED BLEEDING. DRESSING APPLIED TO SITE. NO SIGNS OF DISTRESS NOTED AT THIS TIME. CALL LIGHT WITH IN REACH BED IS IN ITS LOWEST POSITION. CARLOS x2 PT HAS NO COMPLAINTS AT THIS TIME. WILL CONTINUE TO MONITOR
--- NOTE | 2019-08-09 20:46 | NUR ---
BED ALARM SOUNDING. PT SITTING UOP ON SIDE OF BED. NO SIGNS OR SYMPTOMS OF DISTRESS NOTED RESPIRATIONS EVEN AND UNLABORED. PT HAS NO COMPLAINTS AT THIS TIME. ASSIT PT WITH LAYING BACK AND GETTING COMFORTABLE. CALL LIGHT AND OTHER PERSONAL ITEMS WITH IN REACH. WILL CONTINUE TO MONIOTR
[2019-08-10] VITALS: BP 105/36
--- NOTE | 2019-08-10 02:45 | NUR ---
PT LYING IN BED RESTING QUEITLY WITH EYES CLOSED EASILY AWAKEN WITH VOICE STIMULATION. NO SIGNS OF DISTRESS NOTED. BED BATH COMPLETE AND BED LINEN CHANGED. CALL LIGHT WITH IN REACH. WILL CONTINUE T MONITOR
--- NOTE | 2019-08-10 05:44 | NUR ---
I have reviewed this patient and I concur with the Shift Assessment completed by the Licensed Practical Nurse today this shift.
--- NOTE | 2019-08-10 06:30 | NUR ---
DRESSINGS CHANGE PER ORDERS. PT TOLERATED WELL. LARGE LOOSE BM x2. BED BATH AND LINEN CHANGE. TYLENOL GIVEN FOR 5/10 PAIN LEVEL. COFFEE PROVIDED PER PT REQUEST. CALL LIGHT AND OTHER PERSONAL ITEMS WITH IN REACH. WILL CONTINUE TO MONITOR
--- NOTE | 2019-08-10 07:45 | NUR ---
LYING IN BED WITH EYES CLOSED AT THIS TIME. PT DENIES ANY NEEDS. RESPIRATIONS STEADY AND UNLABORED. PT AWAKENS WHEN SPOKEN TO. FOLLOWS COMMANDS. ORIENTED TO SELF ONLY. REORIENTATION PROVIDED. VSS. WILL CONTINUE PLAN OF CARE.
[2019-08-10 08:02] VITALS: BP 107/71
[2019-08-10 08:32] LABS: HEMATOCRIT 32.1 % (42.0-54.0); LYMPHOCYTES 13.5 % (15-50); MCH 30.6 pg (26.0-34.0); MCHC 31.2 g/dL (31.0-37.0); MCV 98.2 fL (80.0-100.0); MEAN PLATELET VOLUME 9.9 fL (7.4-10.4); NEUTROPHILS 76.9 % (40-80); PLATELET COUNT 377 10x3/uL (130-400); RBC 3.27 10x6/uL (4.20-6.10); WBC 6.7 10x3/uL (4.8-10.8)
[2019-08-10 08:36] LABS: CALCIUM 7.9 mg/dL (8.5-10.1); CARBON DIOXIDE 27.7 mmol/L (21.0-32.0); CREATININE - SERUM 1.1 mg/dL (0.6-1.3); POTASSIUM - SERUM 3.7 mmol/L (3.5-5.1)
--- NOTE | 2019-08-10 09:27 | NUR ---
PT NOTED TO NOT HAVE IV ACCESS, NEW IV PLACED TO RT FOREARM, 22G X 1 ATTEMPT. FLUSHES WELL. COVERED WITH CURLEX DRESSING. WILL CONTINUE PLAN OF CARE.
--- NOTE | 2019-08-10 11:23 | NUR ---
INCONTINENT BOWEL MOVEMENT (LARGE SOFT LIGHT BROWN) AND VOID NOTED. TOTAL LINEN CHANGE AND BATH PROVIDED. VSS. NO ACUTE DISTRESS NOTED. WILL CONTINUE PLAN OF CARE.
[2019-08-10 11:39] VITALS: BP 105/66
--- NOTE | 2019-08-10 13:43 | NUR ---
LYING IN BED RESTING AT THIS TIME. VSS. NO ACUTE DISTRESS NOTED. PT DENIES ANY NEEDS. RESPIRATIONS STEADY AND UNLABORED. PT AWAKENS TO DISCOMFORT. CALL LIGHT IN REACH. WILL CONTINUE PLAN OF CARE.
[2019-08-10 15:48] VITALS: BP 137/66
--- NOTE | 2019-08-10 17:23 | NUR ---
DRESSING CHANGES PERFORMED TO BILATERAL ARMS AND RT LEG PER DAILY CHANGE ORDERS. SITES CLEANSED AND DRESSING CHANGES PERFORMED DIRECTED TO ORDERS. NO DRAINAGE TO SITES. NO ACUTE DISTRESS NOTED. WILL CONTINUE PLAN OF CARE.
--- NOTE | 2019-08-10 19:00 | NUR ---
REPORT RECEIVED. RECEIVED PATIENT IN BED, RESTING WITH EYES CLOSED. EASILY ROUSED AND ALERT. VSS. ASSESSMENT COMPLETED PER FLOW SHEET WITH NO ACUTE DISTRESS OBSERVED.
[2019-08-10 20:00] VITALS: BP 94/55
[2019-08-11] VITALS: BP 101/67
[2019-08-11 04:00] VITALS: BP 118/73
[2019-08-11 06:59] LABS: ANION GAP 8.8 mmol/L (8-16); CALCIUM 8.5 mg/dL (8.5-10.1); CARBON DIOXIDE 32.5 mmol/L (21.0-32.0); CREATININE - SERUM 1.1 mg/dL (0.6-1.3); POTASSIUM - SERUM 3.3 mmol/L (3.5-5.1); VANCOMYCIN - RANDOM 20.6 ug/mL (10.0-20.0)
[2019-08-11 07:02] LABS: HEMATOCRIT 32.1 % (42.0-54.0); HEMOGLOBIN 10.1 g/dL (13.5-17.5); LYMPHOCYTES 15.7 % (15-50); MCH 30.4 pg (26.0-34.0); MCHC 31.5 g/dL (31.0-37.0); MCV 96.7 fL (80.0-100.0); MEAN PLATELET VOLUME 8.9 fL (7.4-10.4); NEUTROPHILS 76.5 % (40-80); PLATELET COUNT 452 10x3/uL (130-400); RBC 3.32 10x6/uL (4.20-6.10); RDW 14.2 % (11.5-14.5); WBC 7.3 10x3/uL (4.8-10.8)
--- NOTE | 2019-08-11 10:00 | NUR ---
WOUND CARE DONE PER DRESSING ORDERS.
--- NOTE | 2019-08-11 11:14 | NUR ---
CALLED REPORT TO REINA AT [facility].
--- NOTE | 2019-08-11 11:41 | MORECARE ---
CASE MANAGEMENT DISCHARGE SUMMARY PATIENT: ALYX HERNANDES UNIT: [id number] ADM DATE: 08/04/19 AGE: 68 : 50 SEX: M ROOM/BED: D.2138 AUTHOR: GIRMA FISHER PHYSICIAN: REFERRING PHYSICIAN: RIGOBERTO CHEUNG MD DATE OF SERVICE: 08/11/19 Discharge Plan Patient Name: ALYX HERNANDES Facility: [facility]:[place] : 1950 Planned Disposition: Home Anticipated Discharge Date: Discharge Date: Expected LOS: Initial Reviewer: [email or web address] Initial Review Date: 08/04/2019 Generated: 08/11/19 12:41 pm Comments DCP- Discharge Planning Updated by [email or web address]: Rosanne Cardoza on 08/11/19 10:[address] Patient Name: ALYX HERNANDES Encounter No: [id number] : 1950 Primary Insurance: MEDICARE A & B Anticipated DC Date: Planned Disposition: Home External Planned Provider: : DCP follow-up note: Patient will be discharged today back to [facility]. CM spoke with Nirmala about DC. [facility] Nursing can call report to [facility] nurse at [phone]. CM attempted to call pt Liz dickinson for update at [phone]. CM left voice mail to return call. Patient will be transported by ambulance back to facility. CM attempted to deliver DC imm. pt confused unable to deliver. Left voice message wit daughter. Will mail once family address is available. CM will continue to assist as needed Rosanne Cardoza MSN,RN,CM DCP- Discharge Planning Updated by [email or web address]: Rosanne Cardoza on 08/08/19 12:[address] Patient Name: ALYX HERNANDES Admission Status: ER Accout number: [id number] Admission Date: 08-04-2019 : 1950 Admission Diagnosis:SEPSIS, UNSPECIFIED ORGANISM Attending: RIGOBERTO CHEUNG Current LOS: 4 Anticipated DC Date: Planned Disposition: Home Primary Insurance: MEDICARE A & B Discharge Planning Comments: CM met with patient to complete initial dc planning assessment. CM educated patient on the CM role and verbal consent given by patient to complete assessment. CM verified patient's address, phone number, and emergency contact phone numbers. Patient is confused and unable to answer questions. He is a resident at [facility] in a residential bed. At discharge patient plans to return to [facility] and feels this is a safe discharge. Patient denied further known discharge needs at this time. . Transportation provider at discharge will be [facility]. CM will continue to follow and will assist as needed with dc plans/needs. Tape Sewer: Rosanne Cardoza MSN,RN,CM DCPIA - Discharge Planning Initial Assessment Updated by [email or web address]: Rosanne Cardoza on 08/08/19 12:55 pm * Is the patient Alert and Oriented? No * PCP PER [facility] * Pharmacy [facility] * Preadmission Environment Geophysical Prospecting Surveyor Acute Care Facility * Facility Name [facility] * ADLs Partial Dependent * Additional services required to return to the preadmission environment? No * Can the patient safely return to the preadmission environment? Yes * Has this patient been hospitalized within the prior 30 days at any hospital? Yes Last DP export: 08/08/19 12:04 p Patient Name: ALYX HERNANDES Page 21388 at 1141 All edits/amendments must be made on the electronic document DICTATION DATE: 08/11/19 1141 MARINE ENGINEERING TEACHER: VITA 08/11/19 1141 RPT#: [id number] DC DATE: STATUS: ADM IN [facility] [address] [place] [address] END OF REPORT
--- NOTE | 2019-08-11 11:49 | NUR ---
PT HAD A LARGE INCONTINENT BM. COMPLETE LINEN CHANGE DONE. CALLED AND SPOKE WITH REINA AT [facility] AND STATED PT'S LBM WAS NOW TODAY. SHE VERBALIZED UNDERSTANDING.
--- NOTE | 2019-08-11 11:54 | NUR ---
CALLED [facility] AND THEY STATED IT WILL BE 45 MINUTES.
--- NOTE | 2019-08-11 12:20 | NUR ---
PT CONFUSED UNABLE TO SIGN DC PAPERS. RIGHT FA 22G IV DC'D WITH CATH INTACT. ASSISTED PT WITH FEEDING.
--- NOTE | 2019-08-11 12:54 | NUR ---
I have reviewed this patient and I concur with the Shift Assessment completed by the Licensed Practical Nurse today this shift.
--- NOTE | 2019-08-11 14:10 | NUR ---
CALLED [facility] TO SEE NEW TIME OF WHEN EMS WOULD ARRIVE THEY TSATED THEY SHOULD BE AT HOSPITAL. I VERBALIZED UNDERSTANDING.
--- NOTE | 2019-08-11 14:23 | NUR ---
PT LEFT AND TAKEN OUT VIA STRECT[facility] BY EMS.
== END 2019-08-11 14:24 | DRG 872 ==
LOC: D.ER 20:08 → D.M2 08-04 01:33
PROVIDERS: Emergency Medicine; ADMIT Legal Medicine; ATTEND Legal Medicine
PROC: 05HB33Z Insertion of Infusion Device into Right Basilic Vein, Percutaneous Approach (ICD-10-PCS; principal; 2019-08-05)
PROC: B54MZZA Ultrasonography of Right Upper Extremity Veins, Guidance (ICD-10-PCS; 2019-08-05)
DX: A41.9 Sepsis, unspecified organism (principal); I82.511 Chronic embolism and thrombosis of right femoral vein; R65.20 Severe sepsis without septic shock; S81.801A Unspecified open wound, right lower leg, initial encounter; X58.XXXA Exposure to other specified factors, initial encounter; F03.90 Unspecified dementia, unspecified severity, without behavioral disturbance, psychotic disturbance, mood disturbance, and anxiety; W19.XXXA Unspecified fall, initial encounter; I48.91 Unspecified atrial fibrillation; L89.151 Pressure ulcer of sacral region, stage 1